=== PATIENT | female | born 1980 | race Caucasian/White ===

== ENCOUNTER 2019-02-25 21:05 | Inpatient (IN) | payer OTHER ==
[~2019-02-25] VITALS: Ht 170.2 cm; Wt 78.0 kg
--- NOTE | ~2019-02-25 | CON ---
[address] [address] CONSULTATION Name: ELMO DRUMMOND Room: [address] IN M.R.#: [id number] Admission: 02/26/19 Attend Phys: She Sargent Discharge: Date of : 82 Report #: [id number] THIS REPORT FOR: //name// CC: Margie Hutson [place] DICTATED BY: Harris Dobbs MD DATE OF SERVICE: 02/26/2019 CONSULTING PHYSICIAN: Harris Dobbs MD. REASON FOR CONSULTATION: Abdominal pain. ASSESSMENT: Perforated appendicitis. RECOMMENDATIONS: 1. Thank you for the consultation. I will follow along. 2. The CT report was reviewed. The CT report did not mention the appendix in the body or in the impression, however, it did have several other findings. Given her presentation, the ER physician's concern, my concern, the patient's concern regarding appendicitis, I did review the CT scan with a separate radiologist in person. The separate radiologist did say "this is appendicitis." I asked the radiologist about the fistula that was read out on the initial CT report to which he said "this is just appendicitis." I asked the radiologist about the possible tubo-ovarian abscess to which he said "this is appendicitis." 3. I will schedule the patient for surgery as soon as I can today. 4. IV antibiotics. 5. N.p.o. 6. IV fluid resuscitation. 7. IV analgesics. HISTORY OF PRESENT ILLNESS: The patient is a very pleasant 38-year-old female who presents with lower abdominal pain. It is in the right lower quadrant and left lower quadrant. The pain started on Friday. She thought she was constipated, so she tried some laxatives which did not work and just made the pain worse. The patient had worsening pain and ended up vomiting. Pain became so severe, she presented to the ER. The patient reports that she did travel to [place] last week for a soccer tournament and thought she was constipated due to that. She reports that the pain is sharp in nature, 10/10 in intensity and is worsened by movement and the car ride to the hospital. She is unsure of any relieving factors. PAST MEDICAL HISTORY: The patient denies any past medical history [place] [address] CONSULTATION Name: ELMO DRUMMOND Room: [address]#: [id number] Admission: 02/26/19 Attend Phys: She Sargent Discharge: Date of : 82 Report #: [id number] MEDICATIONS: She denies any medications except for meds for ADHD. PAST SURGICAL HISTORY: 1. Hysterectomy. 2. Knee surgery. 3. Breast procedures. SOCIAL HISTORY: Smokes half pack per day. Denies use of alcohol or recreational drugs. She is in the . FAMILY HISTORY: She has breast cancer in her family and she has colon cancer in her family. She denies any history of coagulopathy. REVIEW OF SYSTEMS: CONSTITUTIONAL: No fever. No chills. HEENT: Denies blurring of vision, double vision, headaches, hearing loss, sinus drainage or sore throat. Denies blurring of vision, double vision, headaches, hearing loss, sinus drainage or sore throat. CARDIOVASCULAR: Denies chest pain, palpitations, orthopnea or paroxysmal nocturnal dyspnea. RESPIRATORY: Denies cough, wheezing, hemoptysis, or shortness of air. GASTROINTESTINAL: Please see above and below. GENITOURINARY: Denies dysuria or hematuria or kidney stones. No urinary frequency, urgency or incontinence. Denies dysuria or hematuria or kidney stones. No urinary frequency, urgency or incontinence. MUSCULOSKELETAL: No joint pain. No muscle pain. NEUROLOGICAL: Denies tremor, stroke or seizure. Denies tremor, stroke or seizure. HEMATOLOGIC/LYMPHATICS: Denies easy bruising, easy bleeding or enlarged lymph nodes. SKIN: No rash or ulceration. ENDOCRINE: No heat or cold intolerance PSYCHIATRIC: Denies depression, anxiety, or schizophrenia. PHYSICAL EXAMINATION: VITAL SIGNS: Temperature is 36.7, blood pressure is 127/73, pulse is 112, respiratory rate 16, pulse ox 99%. GENERAL: No apparent distress, alert and oriented x 3. HEENT: PERRLA, EOMI, MMM, NCAT. NECK: Supple. No LAD. CARDIOVASCULAR: Regular rhythm and rate. Hemodynamically stable. Normal capillary refill. Regular rhythm and rate. Hemodynamically stable. Normal capillary refill. PULMONARY: Nonlabored. Clear to auscultation bilaterally. GASTROINTESTINAL: Soft, nondistended, exquisitely tender to palpation in the left lower quadrant and right lower quadrant with guarding, positive rebound and [address] [address] CONSULTATION Name: ELMO DRUMMOND Room: [address] M.R.#: [id number] Admission: 02/26/19 Attend Phys: She Sargent Discharge: Date of : 82 Report #: [id number] no rigidity. EXTREMITIES: Calves soft, nontender, no edema. SKIN: No rashes or bruises. PSYCHIATRIC: Normal mood and affect Normal mood and affect. NEUROLOGICAL: Grossly intact. CN II-XII grossly intact. MUSCULOSKELETAL: 5/5 strength in upper extremities and lower extremities bilaterally. LYMPHATICS: No cervical, inguinal, or supraclavicular lymphadenopathy. LABORATORY DATA: Sodium 137, potassium 3.5, creatinine 0.8, total bilirubin is 0.4, albumin is 3.6. White blood count is 22.5, hemoglobin is ____, hematocrit of ____, platelets 286. CT of the abdomen and pelvis, impression, please see the chart for the impression but also please see the above discussion with separate radiologist regarding confirmation of the diagnosis of appendicitis. That conversation was with ____. By: [id number] Pagan MD /nt
[~2019-02-25 21:05] MED LIST: ADDERALL 20 MG20 M1 PO; MULTIVITAMINS; NORCO 5-325 TA1 EACH PO; TAMSULOSIN HCL0.4 M1 PO; VICODIN 5-5001 EACH PO; ZOFRAN 4 MG ORAL4 MG PO; ZPAK PO
[2019-02-25 21:13] VITALS: BP 127/73
[2019-02-25] MEDS ORDERED: VYVANSE40 MG PO (21:16)
[2019-02-25 21:18] LABS: URINE BILIRUBIN NEGATIVE (Negative); URINE BLOOD TRACE (Negative); URINE CLARITY CLEAR; URINE COLOR YELLOW; URINE GLUCOSE-RANDOM NEGATIVE (Negative); URINE KETONES NEGATIVE (Negative); URINE LEUKOCYTES-REFLEX NEGATIVE (Negative); URINE NITRITE-REFLEX NEGATIVE (Negative); URINE PROTEIN NEGATIVE (Negative); URINE SPECIFIC GRAVITY <= 1.005 (1.005-1.030); URINE UROBILINOGEN 0.2 E.U./dl (0.2-1.0)
[2019-02-25 21:41] LABS: HEMATOCRIT 38.4 % (37.0-47.0); HEMOGLOBIN 13.2 gm/dL (12.0-15.0); MCH 32.4 pg (26.0-34.0); MCHC 34.3 g/dL (28.0-37.0); MCV 94.4 fL (80.0-100.0); MPV 7.4 fl. (7.2-11.1); NUCLEATED RBCS 0 /100WBC; PLATELET COUNT* 286 thou/uL (150-400); RBC 4.07 mil/uL (4.20-5.00); RDW-CV 12.8 % (10.5-14.5); WBC 22.5 thou/uL (4.0-11.0)
[2019-02-25 21:50] LABS: CALCIUM 8.7 mg/dL (8.5-10.1); CREATININE 0.8 mg/dL (0.6-1.3); POTASSIUM 3.5 mmol/L (3.5-5.1)
[2019-02-25 21:59] LABS: ALBUMIN 3.6 g/dL (3.4-5.0); TOTAL BILIRUBIN 0.4 mg/dL (<0.1-1.0); TOTAL PROTEIN 7.6 g/dL (6.4-8.2)
[2019-02-25 22:09] LABS: ABSOLUTE LYMPHOCYTES 3.8 thou/uL (0.8-5.3); ABSOLUTE MONOCYTES 1.4 thou/uL (0.0-1.2); ABSOLUTE NEUTROPHILS 17.3 thou/uL (1.6-8.1); PLATELET ESTIMATE ADEQUATE
[2019-02-26 02:27] VITALS: BP 110/68
[2019-02-26 02:30] VITALS: BP 102/56
[2019-02-26 08:30] VITALS: BP 113/58
[2019-02-26 11:43] LABS: ABSOLUTE BASOPHILS 0.1 thou/uL (0.0-0.2); ABSOLUTE EOSINOPHILS 0.1 thou/uL (0.0-0.7); ABSOLUTE LYMPHOCYTES 2.8 thou/uL (0.8-5.3); ABSOLUTE MONOCYTES 1.3 thou/uL (0.0-1.2); ABSOLUTE NEUTROPHILS 9.3 thou/uL (1.6-8.1); BASOPHILS 0.6 %; EOSINOPHILS 0.8 %; HEMOGLOBIN 12.1 gm/dL (12.0-15.0); LYMPHOCYTES 20.7 %; MCH 32.8 pg (26.0-34.0); MCHC 34.5 g/dL (28.0-37.0); MCV 95.3 fL (80.0-100.0); MONOCYTES 9.4 %; MPV 7.7 fl. (7.2-11.1); NUCLEATED RBCS 0 /100WBC; PLATELET COUNT* 240 thou/uL (150-400); POLYS 68.5 %; RBC 3.67 mil/uL (4.20-5.00); RDW-CV 12.6 % (10.5-14.5); WBC 13.5 thou/uL (4.0-11.0)
[2019-02-26 11:46] LABS: CALCIUM 8.2 mg/dL (8.5-10.1); CREATININE 0.8 mg/dL (0.6-1.3)
[2019-02-26 12:15] VITALS: BP 113/58
--- NOTE | 2019-02-26 14:18 | NUR ---
ASSUMMED CARE OF PT AT 0730, PT ALERT AND ORIENTED, PT UP AD LEE, C/O ORESSURE IN LOWER ABDONINAL AREA MORE TO RIGHT SIDE, VOIDS WITHOUT DIFFICULTY, NPO STATUS MAINTAINED, IV PATENT IN LEFT ANTECUBITAL, MEDICATED FOR PAIN PER ORDER, PRE OP TEACHING DONE, PT WANTS TO TALK WITH ANESTHESIA PRIOR TO SIGNING CONSENT, ASSESSMENT COMPLETE, HOURLY ROUNDING COMPLETE, ASSESSMENT COMPLETE, WILL CONTINUE TO MONITOR.
--- NOTE | 2019-02-26 18:08 | NUR ---
PATIENT RETURNED FROM SURGERY AT THIS TIME. LAP SITES NOT TO ABD, DRY/INTACT. IVF AND SCHED ABX INFUSING. NO COMPLAINTS OF PAIN. NPO EXCEPT ICE CHIPS. VITALS STABLE.
[2019-02-26 18:12] VITALS: BP 100/47
[2019-02-26 21:20] VITALS: BP 87/40
[2019-02-27] VITALS: BP 90/49
[2019-02-27 04:08] VITALS: BP 97/46
--- NOTE | 2019-02-27 05:24 | NUR ---
PT SLEPT OFF AND ON OVERNIGHT. ABD LAP INCISIONS CDI, NO BRUISING OR BLEEDING NOTED. VSS. UP TO BSC TO VOID OVERNIGHT. LAC IVF INFUSING PER PUMP, ABX GIVEN ORDERED. TOLERATING ICE CHIPS WITHOUT N/V, NO PAIN REPORTED UNTIL 0400 THIS SHIFT. PT HOPEFUL FOR DIET ADVANCE TOMORROW. NO LABS THIS MORNING. AOX4, ABLE TO USE CALL LITE AND MAKE NEEDS KNOWN.
[2019-02-27 08:00] VITALS: BP 94/44
[2019-02-27 11:44] VITALS: BP 94/44
[2019-02-27] MEDS ORDERED: FLAGYL500 M1 PO (12:10)
[2019-02-27] MEDS ORDERED: CIPRO500 MG PO (12:10)
[2019-02-27] MEDS ORDERED: OXYCODONE HCL 55 MG PO (12:12)
[2019-02-27] MEDS ORDERED: TYLENOL325 MG PO (14:21)
[2019-02-27 16:30] VITALS: BP 92/44
--- NOTE | 2019-02-27 17:33 | NUR ---
ASSUMED CARE OF PATIENT THIS AM AT 0730. PATIENT IS ALERT AND ORIENTED X 4. SHE C/O PAIN THIS AM WITH AM ASSESSMENT. PATIENT MEDICATED FOR PAIN X 1 IV. SHE STATED PAIN WAS RELIEVED AT THAT TIME. DR IN TO ROUND AND PLANS DISCHARGE TODAY. SURGERY IN TO ROUND THIS AFTERNOON AND HE OKAYED PATIENT'S DISCHARGE. IV ANTTIBIOTICS WERE GIVEN. PATIENT STARTED ON REGULAR DIET. SHE TOLERATED IT WELL. SALINE LOCK DISCONTINUED. PATIENT INSTRUCTED ON DISCHARGE ORDERS AND MEDICATIONS. SHE VERBALIZED UNDERSTANDING OF INSTRUCTIONS. PATIENT DISCHARGED TO HOME WITH FAMILY MEMBER PER W/C.
--- NOTE | 2019-03-02 17:06 | PATH ---
[address] [address] PATHOLOGY RPT PROCEDURE Name: SUSY SAGE Room: [address] IN .R.#: [id number] Admission: 02/26/19 Date of : 82 Discharge: 02/27/19 Report #: [id number] Path Case #: [id number] [facility] Accession Number: [id number] . 01 Material submitted: . appendix - APPENDIX . 01 Clinical history: . Acute appendicitis . 02 Diagnosis: Appendix: - Acute gangrenous appendicitis, periappendicitis and serositis. (CHENCHO:lucinda; 03/02/2019) MBR 03/02/2019 1617 Local . 02 Electronically signed: . Roddy Degroot MD, Pathologist NPI- [id number] . 01 Gross description: . Received in formalin, labeled "Susy Sage, appendix", is an appendix (5.5 cm length x 0.9 cm diameter) and attached mesoappendix (4.7 x 1.0 x 1.0 cm). The proximal resection margin is closed by a linear staple line 1.5 cm with an average 0.2 cm width. The staple line and the adjacent serosa is inked black. The serosa is diffusely covered by cooper-white possible purulent material and focal area of disruption that is 1.2 cm from the proximal resection margin and is inked orange. The lumen dilated and filled with hemorrhagic material and no discrete fecalith. The wall has an average thickness of 0.1 cm. The dora-appendiceal soft tissue has a yellow cut surface. Representatively submitted in A1-A2 (A2 = possible perforation) ([facility]; 03/01/2019). [facility] 03/01/2019 175 Local . 02 Pathologist provided ICD-10: K35.80, K65.8 . 02 CPT . 206760 Specimen Comment: A courtesy copy of this report has been sent to [phone], [phone] Specimen Comment: [phone], Specimen Comment: Report sent to ,DR VAZQUEZ / DR KEE Performed at: [address] [id number] MD Haresh Rojo MD Phone: [phone] Performed at: [address] [place] [address] PATHOLOGY RPT PROCEDURE Name: SUSY SAGE Room: [address] IN [facility]#: [id number] Admission: 02/26/19 Date of : 82 Discharge: 02/27/19 Report #: [id number] Path Case #: [id number] [facility] [address] [place] [id number] MD Roddy Degroot MD Phone: [phone]
== END 2019-02-27 17:40 | disposition home or self-care (01) | DRG 853 ==
LOC: M.ERS 21:05 → M.3W 02-26 02:02 → M.TBA-ER 02-26 02:02 → M.3W 02-26 02:31
PROVIDERS: Emergency Medicine; Internal Medicine; ADMIT Internal Medicine
PROC: 0DTJ4ZZ Resection of Appendix, Percutaneous Endoscopic Approach (ICD-10-PCS; principal; 2019-02-26)
DX: A41.9 Sepsis, unspecified organism (principal); K35.32 Acute appendicitis with perforation, localized peritonitis, and gangrene, without abscess; F17.210 Nicotine dependence, cigarettes, uncomplicated; F98.8 Other specified behavioral and emotional disorders with onset usually occurring in childhood and adolescence; Z87.442 Personal history of urinary calculi; Z90.710 Acquired absence of both cervix and uterus; Z88.0 Allergy status to penicillin; Z80.3 Family history of malignant neoplasm of breast; Z80.0 Family history of malignant neoplasm of digestive organs; Z88.8 Allergy status to other drugs, medicaments and biological substances; Z79.899 Other long term (current) drug therapy; Z23 Encounter for immunization